=== PATIENT | female | born 1945 | race Caucasian/White ===

== ENCOUNTER → 2018-09-13 | Outpatient (CLI) | payer MEDICARE, BC ==
[~2018-09-13] MED LIST: ACE500 PO; ASPI-1471 PO; B2/V1TAB5 PO; CALC-547 PO; FISH OIL1 CAP PO; IBU200 PO; ROS10 PO; TAMO20TA24 PO; TUM500 PO
--- NOTE | 2018-09-14 14:07 | RADIOLOGY IMAGING REPORT ---
[place] [facility] [place] NAME: DOUGLAS LION : [id number] MR: [id number] V: [id number] EXAM DATE: ORDERING PHYSICIAN: LARISA VERGARA TECHNOLOGIST: Demetria Zepeda PROCEDURE: BILATERAL DIGITAL SCREENING MAMMOGRAM WITH CAD ASSISTED INTERPRETATION & 3D TOMOSYNTHESIS REASON FOR STUDY: Screening FAMILY HISTORY OF BREAST CANCER: None BREAST PROCEDURES/TREATMENTS: Benign surgical biopsy of the Right breast & malignant surgical biopsy of the Left breast in 2008 with radiation therapy. COMPARISON: 11/11/16, 10/27/15, 02/21/14, 02/19/13, 02/16/12 VIEWS OBTAINED: Bilateral 2D & 3D full field CC & MLO BREAST DENSITY: There are scattered areas of fibroglandular density throughout the breasts. MAMMOGRAM FINDINGS: The Left breast is smaller than the Right & there is architectural distortion in the deep central Left breast that has remained stable consistent with the history of prior lumpectomy. The remainder of the parenchymal pattern has likewise remained stable when allowing for difference in mammographic technique & patient positioning. IMPRESSION: BIRADS 2: Benign finding. DIAGNOSTIC CATEGORY 2--BENIGN FINDING. RECOMMENDATIONS: ROUTINE MAMMOGRAM AND CLINICAL EVALUATION. Dictated by: Courtney Alarcon M.D. on 09/13/2018 at 16:16 Transcribed by: [email or web address] on 09/14/2018 at 13:05 Approved by: Courtney Alarcon M.D. on 09/14/2018 at 14:05 [facility]
== END ==
LOC: MAMO 00:19
PROVIDERS: ATTEND Nurse Practitioner Family
DX: Z12.31 Encounter for screening mammogram for malignant neoplasm of breast (principal)
CPT/HCPCS: 77063; 77067

== ENCOUNTER → 2018-10-03 | Outpatient (CLI) | payer MEDICARE, BC ==
[2018-10-03 14:41] LABS: INR 0.99
--- NOTE | 2018-10-03 14:46 | RADIOLOGY IMAGING REPORT ---
FACILITY: [facility] PATIENT NAME: Larissa Barreto : 1945 MR: [id number] V: [id number] EXAM DATE: ORDERING PHYSICIAN: MEGAN JENNINGS TECHNOLOGIST: Location: [facility] Patient: Larissa Barreto : 1945 Visit/Account:[id number] Date of Sevice: 10/03/2018 Exam type: CHEST PA LAT History: Coronary artery disease, heart catheter next week Comparison: None. Findings: There several vague densities seen in the right lung one projecting over the right upper thorax in on e of the right lower thorax. This may simply represent superimposed shadows however short-term inter jeromy follow-up chest or chest CT recommended. There is no evidence of focal infiltrates, pleural effu sions or overt pulmonary edema. The cardiac silhouette is normal in size. Of the left breast appear smaller than the right. IMPRESSION: 1. No evidence of acute infiltrates or overt pulmonary edema Vague densities project over the right upper and right lower thorax may simply represent superimposed shadows although short-term interval follow-up chest or chest CT recommended Report Dictated By: Courtney Alarcon MD at 10/03/2018 2:37 PM Report E-Signed By: Courtney Alarcon MD at 10/03/2018 2:42 PM WSN:[email or web address]
== END ==
LOC: LAB 13:55
PROVIDERS: ATTEND Internal Medicine Cardiovascular Disease
DX: I25.10 Atherosclerotic heart disease of native coronary artery without angina pectoris (principal)
CPT/HCPCS: 36415; 71046; 82040; 82247; 82310; 82374; 82435; 82565; 82947; 84075; 84132; 84155; 84295; 84450; 84460; 84520; 85027; 85610